=== PATIENT | male | born 1935 | race Caucasian/White ===

== ENCOUNTER 2017-06-30 14:32 | Outpatient (CLI) | payer MEDICARE, OTHER ==
[2017-06-30 18:10] LABS: CHOL/HDL RATIO 2.7 (<5.0); CHOLESTEROL 157 mg/dL; HDL CHOLESTEROL 59 mg/dL; LDL/HDL RATIO 1.4 (<3.6); TRIGLYCERIDES 92 mg/dL; VLDL CHOLESTEROL 18 mg/dL
== END 2017-06-30 14:33 | disposition home or self-care (01) ==
LOC: LAB.F 14:32
PROVIDERS: ATTEND Internal Medicine
DX: E78.00 Pure hypercholesterolemia, unspecified (principal); Z12.5 Encounter for screening for malignant neoplasm of prostate; N40.1 Benign prostatic hyperplasia with lower urinary tract symptoms; N52.9 Male erectile dysfunction, unspecified
CPT/HCPCS: 36415; 80061; 84153

== ENCOUNTER 2017-08-17 10:03 | Outpatient (CLI) | payer MEDICARE, OTHER ==
[2017-08-17 17:52] LABS: BASOPHILS % (AUTO) 0.2 %; EOSINOPHILS # (AUTO) 0.1 10^3/uL (0.0-0.7); EOSINOPHILS % (AUTO) 1.4 %; HCT - HEMATOCRIT 39.3 % (42.0-52.0); HGB - HEMOGLOBIN 13.2 g/dL (14.0-18.0); LYMPHOCYTES # (AUTO) 0.8 10^3/uL (1.5-3.5); LYMPHOCYTES % (AUTO) 9.9 %; MEAN CORPUSCULAR HEMOGLOBIN 31.5 pg (27.0-31.0); MEAN CORPUSCULAR HGB CONC 33.6 g/dL (32.0-36.0); MEAN CORPUSCULAR VOLUME 93.7 fL (80.0-94.0); MEAN PLATELET VOLUME 10.3 fL (7.4-11.4); MONOCYTES # (AUTO) 0.6 10^3/uL (0.0-1.0); MONOCYTES % (AUTO) 7.9 %; NEUTROPHILS # (AUTO) 6.2 10^3/uL (1.5-6.6); NEUTROPHILS % (AUTO) 80.6 %; NUCLEATED RED BLOOD CELLS AUTO 0.1 /100WBC; RED BLOOD COUNT 4.19 10^6/uL (4.70-6.10); RED CELL DISTRIBUTION WIDTH 13.8 % (12.0-15.0); UNCORRECTED WHITE BLOOD COUNT 7.7 x10^3/uL; WHITE BLOOD COUNT 7.7 x10^3/uL (4.8-10.8)
[2017-08-17 18:18] LABS: URIC ACID 3.9 mg/dL (2.6-7.2)
== END 2017-08-17 10:04 | disposition home or self-care (01) ==
LOC: LAB.F 10:03
PROVIDERS: ATTEND Family Medicine
DX: M10.9 Gout, unspecified (principal)
CPT/HCPCS: 36415; 84550; 85025; 85651; 86140

== ENCOUNTER 2017-09-01 10:22 | Day surgery (SDC) | payer MEDICARE, OTHER ==
[2017-09-01] MEDS ORDERED: LACTATED RINGERS 1,000 ML IV ONE (11:18)
[2017-09-01] MEDS ORDERED: fentaNYL 100 MCG/2 ML VIAL IVP ONE (12:27)
[2017-09-01] MEDS ORDERED: MIDAZOLAM 2 MG/2 ML VIAL IVP ONE (12:27)
[2017-09-01 13:54] VITALS: BP 105/51
== END 2017-09-01 10:23 | disposition home or self-care (01) ==
LOC: SDS 10:22
PROVIDERS: ATTEND Surgery
PROC: 0DBK8ZX Excision of Ascending Colon, Via Natural or Artificial Opening Endoscopic, Diagnostic (ICD-10-PCS; principal; 2017-09-01 12:00)
DX: Z12.11 Encounter for screening for malignant neoplasm of colon (principal); D12.2 Benign neoplasm of ascending colon; Z80.0 Family history of malignant neoplasm of digestive organs; K64.8 Other hemorrhoids; E78.00 Pure hypercholesterolemia, unspecified; Z87.891 Personal history of nicotine dependence
CPT/HCPCS: 45380; J7120

== ENCOUNTER 2018-01-10 14:54 | Outpatient (CLI) | payer MEDICARE, OTHER ==
--- NOTE | 2018-01-11 09:33 | XRAY Report ---
TWO VIEW BILATERAL SHOULDERS: 01/10/2018 CLINICAL INDICATION: Bilateral pain. FINDINGS: Frontal and scapular Y views of the bilateral shoulders demonstrate bilateral glenohumeral osteoarthritis, moderate. There is no evidence of acute fracture or dislocation. No foreign body is seen in the soft tissues. IMPRESSION: BILATERAL OSTEOARTHRITIS. TD: 01/11/2018 09:32
== END 2018-01-10 14:55 | disposition home or self-care (01) ==
LOC: DI.S 14:54
PROVIDERS: ATTEND Family Medicine
DX: M19.011 Primary osteoarthritis, right shoulder (principal); M19.012 Primary osteoarthritis, left shoulder

== ENCOUNTER 2018-08-22 08:51 | Outpatient (CLI) | payer MEDICARE, OTHER ==
[2018-08-22 18:27] LABS: CALCIUM 8.8 mg/dL (8.5-10.3); CREATININE 0.8 mg/dL (0.6-1.2)
[2018-08-22 18:31] LABS: HB2 TOTAL 15.4 g/dL; HEMOGLOBIN A1C 0.63 g/dL; HEMOGLOBIN A1C % 5.9 % (4.6-6.2)
== END 2018-08-22 08:52 | disposition home or self-care (01) ==
LOC: LAB.F 08:51
PROVIDERS: ATTEND Internal Medicine
DX: R73.01 Impaired fasting glucose (principal); Z12.5 Encounter for screening for malignant neoplasm of prostate; Z13.220 Encounter for screening for lipoid disorders
CPT/HCPCS: 36415; 80048; 83036; G0103; 80061; 83721; 84153

== ENCOUNTER 2019-03-20 09:28 | Outpatient (CLI) | payer MEDICARE, OTHER ==
[2019-03-20 18:11] LABS: BASOPHILS % (AUTO) 0.3 %; EOSINOPHILS # (AUTO) 0.3 10^3/uL (0.0-0.7); EOSINOPHILS % (AUTO) 4.1 %; HGB - HEMOGLOBIN 13.5 g/dL (14.0-18.0); LYMPHOCYTES # (AUTO) 1.1 10^3/uL (1.5-3.5); LYMPHOCYTES % (AUTO) 14.8 %; MEAN CORPUSCULAR HEMOGLOBIN 31.2 pg (27.0-31.0); MEAN CORPUSCULAR HGB CONC 32.5 g/dL (32.0-36.0); MEAN CORPUSCULAR VOLUME 95.8 fL (80.0-94.0); MEAN PLATELET VOLUME 11.6 fL (7.4-11.4); MONOCYTES # (AUTO) 0.5 10^3/uL (0.0-1.0); NEUTROPHILS # (AUTO) 5.4 10^3/uL (1.5-6.6); NEUTROPHILS % (AUTO) 73.5 %; PLT - PLATELET COUNT 222 10^3/uL (130-450); RED BLOOD COUNT 4.33 10^6/uL (4.70-6.10); RED CELL DISTRIBUTION WIDTH 14.1 % (12.0-15.0); WHITE BLOOD COUNT 7.3 x10^3/uL (4.8-10.8)
[2019-03-20 18:55] LABS: ALBUMIN 3.9 g/dL (3.2-5.5); ALBUMIN/GLOBULIN RATIO 1.5 (1.0-2.2); BILIRUBIN,TOTAL 0.6 mg/dL (0.2-1.0); CALCIUM 8.9 mg/dL (8.5-10.3); CREATININE 0.8 mg/dL (0.6-1.2); TOTAL PROTEIN 6.5 g/dL (6.7-8.2)
== END 2019-03-20 09:29 | disposition home or self-care (01) ==
LOC: LAB.S 09:28
PROVIDERS: ATTEND Internal Medicine
DX: R53.83 Other fatigue (principal)
CPT/HCPCS: 36415; 80053; 84443; 85025

== ENCOUNTER 2019-03-28 13:52 | Outpatient (CLI) | payer MEDICARE, OTHER ==
[2019-03-28 17:11] LABS: ABSOLUTE RETICS # AUTO 0.06 10^6/uL (0.020-0.110); RED BLOOD COUNT 4.35 10^6/uL (4.70-6.10)
[2019-03-28 17:48] LABS: FERRITIN 133.3 ng/mL (23.9-336.2)
[2019-03-28 18:18] LABS: % IRON SATURATION 24 % (20-50); IRON 76 ug/dL (45-182); TOTAL IRON BINDING CAPACITY 323 ug/dL (250-450); TRANSFERRIN 231 mg/dL (180-329)
== END 2019-03-28 13:53 | disposition home or self-care (01) ==
LOC: LAB.S 13:52
PROVIDERS: ATTEND Internal Medicine
DX: D64.9 Anemia, unspecified (principal)
CPT/HCPCS: 36415; 82607; 82728; 82746; 83540; 84466; 85044

== ENCOUNTER 2019-08-29 08:57 | Outpatient (CLI) | payer MEDICARE, OTHER ==
[2019-08-29 17:35] LABS: HB2 TOTAL 13.8 g/dL; HEMOGLOBIN A1C 0.59 g/dL; HEMOGLOBIN A1C % 6.1 % (4.6-6.2)
[2019-08-29 17:43] LABS: BUN - BLOOD UREA NITROGEN 19 mg/dL (6-20); CARBON DIOXIDE - CO2 27 mmol/L (21-32); CHLORIDE 105 mmol/L (101-111); CHOL/HDL RATIO 2.5 (<5.0); CHOLESTEROL 176 mg/dL; CREATININE 0.9 mg/dL (0.6-1.2); GFR - MDRD 80 (>89); GLUCOSE 104 mg/dL (70-100); HDL CHOLESTEROL 71 mg/dL; LDL CHOLESTEROL,CALCULATED 96 mg/dL; LDL/HDL RATIO 1.4 (<3.6); SODIUM 139 mmol/L (135-145); VLDL CHOLESTEROL 9 mg/dL
== END 2019-08-29 08:58 | disposition home or self-care (01) ==
LOC: LAB.S 08:57
PROVIDERS: ATTEND Internal Medicine
DX: Z12.5 Encounter for screening for malignant neoplasm of prostate (principal); R73.01 Impaired fasting glucose; Z13.220 Encounter for screening for lipoid disorders
CPT/HCPCS: 36415; 80048; 80061; 83036; G0103; 83721; 84153

== ENCOUNTER 2020-09-01 07:05 | Outpatient (CLI) | payer MEDICARE, OTHER ==
[2020-09-01 15:30] LABS: BASOPHILS % (AUTO) 0.3 %; EOSINOPHILS # (AUTO) 0.2 10^3/uL (0.0-0.7); EOSINOPHILS % (AUTO) 3.5 %; HGB - HEMOGLOBIN 13.9 g/dL (14.0-18.0); LYMPHOCYTES # (AUTO) 1.1 10^3/uL (1.5-3.5); LYMPHOCYTES % (AUTO) 17.8 %; MEAN CORPUSCULAR HEMOGLOBIN 32.2 pg (27.0-31.0); MEAN CORPUSCULAR HGB CONC 32.6 g/dL (32.0-36.0); MEAN CORPUSCULAR VOLUME 98.6 fL (80.0-94.0); MEAN PLATELET VOLUME 11.9 fL (7.4-11.4); MONOCYTES # (AUTO) 0.5 10^3/uL (0.0-1.0); MONOCYTES % (AUTO) 7.1 %; NEUTROPHILS # (AUTO) 4.5 10^3/uL (1.5-6.6); NEUTROPHILS % (AUTO) 70.8 %; PLT - PLATELET COUNT 207 10^3/uL (130-450); RED BLOOD COUNT 4.32 10^6/uL (4.70-6.10); RED CELL DISTRIBUTION WIDTH 13.4 % (12.0-15.0); WHITE BLOOD COUNT 6.3 x10^3/uL (4.8-10.8)
[2020-09-01 15:38] LABS: ALBUMIN 3.8 g/dL (3.2-5.5); ALBUMIN/GLOBULIN RATIO 1.7 (1.0-2.2); BILIRUBIN,TOTAL 0.6 mg/dL (0.2-1.0); CALCIUM 8.8 mg/dL (8.5-10.3); CREATININE 0.9 mg/dL (0.6-1.2); TOTAL PROTEIN 6.1 g/dL (6.7-8.2)
== END 2020-09-01 07:06 | disposition home or self-care (01) ==
LOC: LAB.S 07:05
PROVIDERS: ATTEND Internal Medicine
DX: R73.01 Impaired fasting glucose (principal); N40.1 Benign prostatic hyperplasia with lower urinary tract symptoms; N13.8 Other obstructive and reflux uropathy; I10 Essential (primary) hypertension
CPT/HCPCS: 36415; 80053; 84153; 85025

== ENCOUNTER 2021-01-27 10:58 | Outpatient (CLI) | payer MEDICARE, OTHER ==
[2021-01-27 14:58] LABS: BASOPHILS % (AUTO) 0.2 %; EOSINOPHILS # (AUTO) 0.2 10^3/uL (0.0-0.7); EOSINOPHILS % (AUTO) 2.1 %; HCT - HEMATOCRIT 42.7 % (42.0-52.0); HGB - HEMOGLOBIN 14.5 g/dL (14.0-18.0); LYMPHOCYTES % (AUTO) 12.9 %; MEAN CORPUSCULAR HEMOGLOBIN 32.4 pg (27.0-31.0); MEAN CORPUSCULAR VOLUME 95.5 fL (80.0-94.0); MEAN PLATELET VOLUME 12.3 fL (7.4-11.4); MONOCYTES # (AUTO) 0.6 10^3/uL (0.0-1.0); NEUTROPHILS # (AUTO) 6.2 10^3/uL (1.5-6.6); NEUTROPHILS % (AUTO) 77.4 %; PLT - PLATELET COUNT 219 10^3/uL (130-450); RED BLOOD COUNT 4.47 10^6/uL (4.70-6.10); RED CELL DISTRIBUTION WIDTH 13.3 % (12.0-15.0)
[2021-01-27 15:42] LABS: ALBUMIN 4.3 g/dL (3.2-5.5); ALBUMIN/GLOBULIN RATIO 1.7 (1.0-2.2); BILIRUBIN,TOTAL 0.7 mg/dL (0.2-1.0); CALCIUM 9.1 mg/dL (8.5-10.3); CREATININE 0.9 mg/dL (0.6-1.2); POTASSIUM 4.3 mmol/L (3.5-5.0); TOTAL PROTEIN 6.8 g/dL (6.7-8.2)
== END 2021-01-27 10:59 | disposition home or self-care (01) ==
LOC: LAB.S 10:58
PROVIDERS: ATTEND Internal Medicine
DX: I10 Essential (primary) hypertension (principal); R53.83 Other fatigue
CPT/HCPCS: 36415; 80053; 81599; 84402; 84403; 85025

== ENCOUNTER 2021-02-25 14:44 | Outpatient (CLI) | payer MEDICARE, OTHER ==
--- NOTE | 2021-02-25 17:46 | XRAY Report ---
PROCEDURE: Lumbar Spine 2 View INDICATIONS: PX IN BACK TECHNIQUE: 3 views of the lumbar spine were acquired. COMPARISON: None. FINDINGS: Bones: 5 [id number] vertebrae are present. No acute vertebral body compression fractures. No s uspicious bony lesions. 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 There is a lso mild anterolisthesis of L5 on S1. No definite pars defect seen. Soft tissues: Overlying bowel gas pattern is normal. No suspicious soft tissue calcifications. Surg ical clips noted in the left lower pelvis. IMPRESSION: 1. Lumbar spine without acute radiographic abnormalities. 2. Multilevel lumbar spondylosis most pronounced at T12-L1 and L1-L2 with grade 1 anterolisthesis of L5 on S1. Reviewed by: Leoncio Dickinson MD on 02/25/2021 5:45 PM PDT Approved by: Leoncio Dickinson MD on 02/25/2021 5:45 PM PDT Station ID: [id number]
--- NOTE | 2021-02-25 17:50 | XRAY Report ---
PROCEDURE: Hip w/Pelvis 2-3V LT INDICATIONS: HIP JT PX LT TECHNIQUE: AP pelvis with lateral view(s) of the left hip(s). COMPARISON: Lumbar spine radiographs from same day. FINDINGS: Bones: No acute fractures or dislocations. Pelvic ring appears intact. No suspicious bony lesions. There are mild degenerative changes involving the bilateral hip joints. Findings appear more pronou nced on the right. Lower lumbar spondylosis. Mild degenerative changes of the bilateral sacroiliac fiona ints. Soft tissues: The visualized bowel gas pattern is normal. No suspicious soft tissue calcifications. Surgical clips are noted in the left lower pelvis and right scrotal region. IMPRESSION: Left hip and pelvis without acute fracture or dislocation. Degenerative changes of the lower lumbar spine and bilateral hip joints. Reviewed by: Leoncio Dickinson MD on 02/25/2021 5:48 PM PDT Approved by: Lenocio Dickinson MD on 02/25/2021 5:48 PM PDT Station ID: [id number]
== END 2021-02-25 14:45 | disposition home or self-care (01) ==
LOC: DI.S 14:44
PROVIDERS: ATTEND Internal Medicine
DX: M54.9 Dorsalgia, unspecified (principal); M25.552 Pain in left hip; M47.817 Spondylosis without myelopathy or radiculopathy, lumbosacral region; M16.0 Bilateral primary osteoarthritis of hip

== ENCOUNTER 2021-09-18 07:51 | Outpatient (CLI) | payer MEDICARE, OTHER ==
[2021-09-18 15:13] LABS: BASOPHILS % (AUTO) 0.3 %; EOSINOPHILS # (AUTO) 0.3 10^3/uL (0.0-0.7); EOSINOPHILS % (AUTO) 4.6 %; HCT - HEMATOCRIT 42.7 % (42.0-52.0); HGB - HEMOGLOBIN 14.7 g/dL (14.0-18.0); LYMPHOCYTES # (AUTO) 1.2 10^3/uL (1.5-3.5); LYMPHOCYTES % (AUTO) 19.2 %; MEAN CORPUSCULAR HEMOGLOBIN 32.4 pg (27.0-31.0); MEAN CORPUSCULAR HGB CONC 34.4 g/dL (32.0-36.0); MEAN CORPUSCULAR VOLUME 94.1 fL (80.0-94.0); MEAN PLATELET VOLUME 11.6 fL (7.4-11.4); MONOCYTES # (AUTO) 0.6 10^3/uL (0.0-1.0); MONOCYTES % (AUTO) 9.6 %; NEUTROPHILS # (AUTO) 4.2 10^3/uL (1.5-6.6); PLT - PLATELET COUNT 231 10^3/uL (130-450); RED BLOOD COUNT 4.54 10^6/uL (4.70-6.10); RED CELL DISTRIBUTION WIDTH 13.9 % (12.0-15.0); WHITE BLOOD COUNT 6.4 x10^3/uL (4.8-10.8)
[2021-09-18 15:14] LABS: ALBUMIN 4.1 g/dL (3.2-5.5); ALBUMIN/GLOBULIN RATIO 1.8 (1.0-2.2); ALKALINE PHOSPHATASE 45 IU/L (42-121); ALT ALANINE AMINOTRANSFERASE 21 IU/L (10-60); AST ASPARTATE AMINOTRANSFERASE 25 IU/L (10-42); BILIRUBIN,TOTAL 0.8 mg/dL (0.2-1.0); BUN - BLOOD UREA NITROGEN 20 mg/dL (6-20); CALCIUM 8.9 mg/dL (8.5-10.3); CARBON DIOXIDE - CO2 25 mmol/L (21-32); CHLORIDE 105 mmol/L (101-111); CHOLESTEROL 206 mg/dL; CREATININE 0.8 mg/dL (0.6-1.2); GFR - MDRD 92 (>89); GLUCOSE 101 mg/dL (70-100); HDL CHOLESTEROL 68 mg/dL; LDL CHOLESTEROL,CALCULATED 125 mg/dL; LDL/HDL RATIO 1.8 (<3.6); POTASSIUM 4.2 mmol/L (3.5-5.0); SODIUM 139 mmol/L (135-145); TOTAL PROTEIN 6.4 g/dL (6.7-8.2); TRIGLYCERIDES 66 mg/dL; VLDL CHOLESTEROL 13 mg/dL
== END 2021-09-18 07:52 | disposition home or self-care (01) ==
LOC: LAB.S 07:51
PROVIDERS: ATTEND Internal Medicine
DX: I10 Essential (primary) hypertension (principal); Z12.5 Encounter for screening for malignant neoplasm of prostate
CPT/HCPCS: 36415; 80053; 80061; 85025; G0103; 83721; 84153

== ENCOUNTER 2022-11-17 08:00 | Outpatient (CLI) | payer MEDICARE, OTHER ==
--- NOTE | 2022-11-18 12:24 | XRAY Report ---
PROCEDURE: Chest 2 View X-Ray INDICATIONS: PERSISTENT COUGH TECHNIQUE: 2 views of the chest were acquired. COMPARISON: None. FINDINGS: Surgical changes and devices: None. Lungs and pleura: No pleural effusions or pneumothorax. Lungs are clear. Mediastinum: Mediastinal contours are normal. Heart size is normal. Bones and chest wall: No suspicious bony abnormalities. Soft tissues appear unremarkable. IMPRESSION: No acute cardiopulmonary process. Reviewed by: Wei Venegas on 11/18/2022 12:23 PM [facility] Approved by: Wei Venegas on 11/18/2022 12:23 PM [facility] Station ID: [id number]
== END 2022-11-17 23:59 | disposition home or self-care (01) ==
LOC: DI.S 08:00
PROVIDERS: ATTEND Emergency Medicine
DX: R05.3 Chronic cough (principal)

== ENCOUNTER 2022-11-18 07:49 | Outpatient (CLI) | payer MEDICARE, OTHER ==
[2022-11-18 14:11] LABS: HCT - HEMATOCRIT 42.2 % (42.0-52.0); HGB - HEMOGLOBIN 14.3 g/dL (14.0-18.0); MEAN CORPUSCULAR HEMOGLOBIN 31.3 pg (27.0-31.0); MEAN CORPUSCULAR HGB CONC 33.9 g/dL (32.0-36.0); MEAN CORPUSCULAR VOLUME 92.3 fL (80.0-94.0); MEAN PLATELET VOLUME 11.8 fL (7.4-11.4); RED BLOOD COUNT 4.57 10^6/uL (4.70-6.10); RED CELL DISTRIBUTION WIDTH 13.7 % (12.0-15.0); WHITE BLOOD COUNT 8.1 x10^3/uL (4.8-10.8)
[2022-11-18 14:32] LABS: BUN - BLOOD UREA NITROGEN 19 mg/dL (6-20); CALCIUM 9.1 mg/dL (8.5-10.3); CARBON DIOXIDE - CO2 28 mmol/L (21-32); CHLORIDE 105 mmol/L (101-111); CHOL/HDL RATIO 2.9 (<5.0); CHOLESTEROL 176 mg/dL; CREATININE 0.9 mg/dL (0.6-1.2); GFR - MDRD 80 (>89); GLUCOSE 103 mg/dL (70-100); HDL CHOLESTEROL 61 mg/dL; LDL CHOLESTEROL,CALCULATED 104 mg/dL; LDL/HDL RATIO 1.7 (<3.6); POTASSIUM 4.5 mmol/L (3.5-5.0); SODIUM 140 mmol/L (135-145); TRIGLYCERIDES 53 mg/dL; VLDL CHOLESTEROL 11 mg/dL
== END 2022-11-18 07:50 | disposition home or self-care (01) ==
LOC: LAB.S 07:49
PROVIDERS: ATTEND Emergency Medicine
DX: I50.9 Heart failure, unspecified (principal); Z13.220 Encounter for screening for lipoid disorders
CPT/HCPCS: 36415; 80048; 80061; 83721; 83880; 85027

== ENCOUNTER 2023-12-29 14:08 | Outpatient (CLI) | payer MEDICARE, OTHER ==
[2023-12-29 18:58] LABS: BASOPHILS % (AUTO) 0.2 %; EOSINOPHILS # (AUTO) 0.2 10^3/uL (0.0-0.7); EOSINOPHILS % (AUTO) 2.5 %; HCT - HEMATOCRIT 41.5 % (42.0-52.0); HGB - HEMOGLOBIN 13.8 g/dL (14.0-18.0); LYMPHOCYTES # (AUTO) 1.2 10^3/uL (1.5-3.5); LYMPHOCYTES % (AUTO) 13.2 %; MEAN CORPUSCULAR HEMOGLOBIN 31.3 pg (27.0-31.0); MEAN CORPUSCULAR HGB CONC 33.3 g/dL (32.0-36.0); MEAN CORPUSCULAR VOLUME 94.1 fL (80.0-94.0); MEAN PLATELET VOLUME 13.3 fL (7.4-11.4); MONOCYTES # (AUTO) 0.7 10^3/uL (0.0-1.0); MONOCYTES % (AUTO) 7.5 %; NEUTROPHILS # (AUTO) 6.7 10^3/uL (1.5-6.6); NEUTROPHILS % (AUTO) 76.1 %; PLT - PLATELET COUNT 187 10^3/uL (130-450); RED BLOOD COUNT 4.41 10^6/uL (4.70-6.10); RED CELL DISTRIBUTION WIDTH 13.5 % (12.0-15.0); WHITE BLOOD COUNT 8.8 x10^3/uL (4.8-10.8)
[2023-12-29 19:16] LABS: ALBUMIN 4.3 g/dL (3.2-5.5); BILIRUBIN,TOTAL 0.4 mg/dL (0.2-1.0); CALCIUM 9.2 mg/dL (8.5-10.3); CREATININE 1.3 mg/dL (0.6-1.3); POTASSIUM 4.2 mmol/L (3.5-4.5); TOTAL PROTEIN 6.4 g/dL (6.4-8.9)
== END 2023-12-29 14:09 | disposition home or self-care (01) ==
LOC: LAB.S 14:08
PROVIDERS: ATTEND Emergency Medicine
DX: R39.15 Urgency of urination (principal)
CPT/HCPCS: 36415; 80053; 84153; 85025